=== PATIENT | male | born 1935 | race Caucasian/White ===

== ENCOUNTER 2017-11-06 17:45 | Inpatient (IN) ==
[2017-11-10] MEDS ORDERED: Ipratropium/Albuterol Neb 3 ML IH PRN (19:04)
[2017-11-10] MEDS: Apixaban 5 MG TABLET PO SCH (21:15)
[2017-11-10] MEDS: Budesonide Neb 0.25 MG/2 ML IH SCH (21:15)
[2017-11-11 05:23] LABS: Basophils % 0.1 %; Eosinophils # 0.3 K/mcL (0.0-0.6); Eosinophils % 2.5 %; Hematocrit 34.8 % (37.5-50.1); Hemoglobin 11.5 g/dL (12.9-16.9); Immature Granulocytes % 0.6 % (0-4); Lymphocytes % 8.2 %; Mean Corpuscular Hemoglobin 32.9 pg (28.0-33.3); Mean Corpuscular Volume 99.4 fL (83.0-100.0); Mean Platelet Volume 11.1 fL (9.4-12.4); Monocytes % 7.8 %; Neutrophils # 10.1 K/mcL (1.6-8.9); Platelet Count 101 K/mcL (140-400); Red Cell Distribution Width 12.8 % (11.5-14.5); Segmented Neutrophils % 80.8 %
[2017-11-11 05:27] LABS: INR 1.3; Prothrombin Time 13.6 Seconds (9.4-12.1)
[2017-11-11 05:38] LABS: Calcium 9.1 mg/dL (8.6-10.8); Potassium 3.8 mEq/L (3.5-4.5)
[2017-11-11] MEDS: Levothyroxine 25 MCG TABLET PO SCH (06:07)
[2017-11-11] MEDS: Cholecalciferol (D-3) 1,000 UNIT TABLET PO SCH (09:44)
[2017-11-11] MEDS: Apixaban 5 MG TABLET PO SCH ×2 (09:44→21:44)
[2017-11-11] MEDS: Cyanocobalamin (B-12) 1,000 MCG TABLET PO SCH (09:44)
[2017-11-11] MEDS: Furosemide 40 MG TABLET PO SCH (09:44)
[2017-11-11] MEDS: Diltiazem CD (24hr) 120 MG CAPSULE PO SCH (09:44)
[2017-11-11] MEDS: Budesonide Neb 0.25 MG/2 ML IH SCH ×2 (09:45→21:44)
--- NOTE | 2017-11-11 10:55 | Internal Med History&Physical ---
Date of Encounter: 11/11/17 Time of Encounter: 10:51 Assessment and Plan (1) COPD (chronic obstructive pulmonary disease) Current visit: Yes Status: Acute Patient was originally admitted for pneumonia and exacerbation of COPD and was successfully treated at [facility]. Patient currently here for PT/OT due to debilitation related to his hospital stay. Patient currently in good spirits and states that he is physically stronger daily. We will continue with current therapy and plan of care. Lungs currently are clear, but noted fine bibasilar rales. We will repeat chest x-ray to evaluate status of previous pleural effusions. No hypoxia or dyspnea noted. We will continue with current medications Qualifiers: COPD type: COPD with acute lower respiratory infection Qualified Code(s): J44.0 - Chronic obstructive pulmonary disease with acute lower respiratory infection (2) CAD (coronary artery disease) Current visit: Yes Status: Chronic Qualifiers: Coronary Disease-Associated Artery/Lesion type: [place] artery [place] vs. transplanted heart: [place] heart Associated angina: without angina Qualified Code(s): I25.10 - Atherosclerotic heart disease of [place] coronary artery without angina pectoris (3) HTN (hypertension) Current visit: Yes Status: Chronic Vital signs are stable. We will continue with current medications. Qualifiers: Hypertension type: essential hypertension Qualified Code(s): I10 - Essential (primary) hypertension (4) Atrial fibrillation Current visit: Yes Status: Chronic Heart rate has remained irregular, but rate is less than 100. Vital signs are stable. He denies palpitations. We will continue with current medications. Qualifiers: Atrial fibrillation type: chronic Qualified Code(s): I48.2 - Chronic atrial fibrillation (5) CHF (congestive heart failure) Current visit: Yes Status: Chronic No acute issues. Recent hospitalization showed BNP greater than 1500. We will continue with physical therapy. We will continue with current medications. Qualifiers: Congestive heart failure type: unspecified congestive heart failure type Congestive heart failure chronicity: acute on chronic Qualified Code(s): I50.9 - Heart failure, unspecified Internal Medicine - H&P: HPI Admitted From: Intrahospital Transfer Plans for Post Hospital Care: Home History of present illness: Mr. Swain is a 82 year old male admitted to this facility for physical therapy and rehabilitation due to debilitation secondary to pneumonia and advanced COPD. Patient states a long history of COPD, stating he uses oxygen continuously at home. Patient states he was in his usual state of health until up to about 2 weeks prior to admission, during which she began to have increasing episodes of shortness of breath. The patient then came to the ED and was diagnosed with pneumonia and pleural effusions. Patient was treated at an [facility] for pneumonia and states that he had a thoracentesis during this hospital stay. Patient also was treated for CHF during his hospital stay. Medical records show a BNP was obtained which was greater than 1500. Patient states that he feels that his health has been improving daily over the past week , states that he is still weaker than his baseline prior to admission. He currently denies any shortness of breath or chest discomforts. States he has minimal thick sputum, which appears brown in color. Denies any other discomforts. Past Med Surg Social Fam HX - Past Medical History Medical history: atrial fibrillation, COPD, hypertension, thyroid disease Psychiatric history: no psych history - Past Surgical History Surgical History: cholecystectomy, other (Thoracentesis) - Social History Smoking Status: Former smoker Smokeless Tobacco Status: No Alcohol use: none Drug use: none Occupational status: retired Current living situation: Home - Independent (Patient states he plans to discharge to his daughter's home until his health returns) Activity Level: Uses cane/walker Recent Out of Country Travel Within the Last 8 Weeks: No Exposure or Possible Exposure to Illness During Travel: No - Family History Mother History Unknown: Yes Father History Unknown: Yes Internal Medicine - H&P: Meds Albuterol Sulfate [Albuterol Inhaler] 2 puff IH Q4H PRN 11/10/17 [History] Apixaban [Eliquis] 2.5 mg PO BID 11/10/17 [History] Budesonide Neb [Pulmicort Neb] 0.25 mg IH BIDR 11/10/17 [History] Cholecalciferol (D-3) [Vitamin D] 2,000 unit PO DAILY 11/10/17 [History] Cyanocobalamin (B-12) [Vitamin B12] 1,000 mcg PO DAILY 11/10/17 [History] Ipratropium/Albuterol Neb [Duoneb] 3 ml IH Q4HR PRN 11/10/17 [History] Levothyroxine [Synthroid] 25 mcg PO 0630 11/10/17 [History] 3 Allergy/AdvReac Type Severity Reaction Status Date / Time No Known Allergies Allergy Verified 10/27/17 09:23 All Systems PM: A 10-system review of systems was performed and is negative for pertinent findings except as documented above in the HPI. - Constitutional Constitutional: as per HPI - EENT Eyes: no change in vision, no discharge, no pain, no photophobia Ears: no ear discharge, no ear pain, no tinnitus Nose, mouth and throat: no dysphagia, no nasal discharge, no neck pain, no sore throat - Cardiovascular Cardiovascular ROS IM: no chest pain, no diaphoresis, no dyspnea, no lightheadedness, no palpitations, no syncope - Respiratory Respiratory: as per HPI, cough, dyspnea, no wheezing, no excessive phlegm production - Gastrointestinal Gastrointestinal: no abdominal pain, no diarrhea, no hematemesis, no hematochezia, no melena, no nausea, no vomiting - Musculoskeletal Musculoskeletal ROS IM: no numbness, no tingling - Integumentary Integumentary IM: no rash, no unusual bruising - Neurological Neurological ROS: no confusion, no convulsions, no focal weakness, no numbness, no tingling, no tremor(s) - Constitutional Vitals: Temp Pulse Resp BP Pulse Ox 98.0 F 63 16 105/64 94 11/11/17 07:18 11/11/17 07:28 11/11/17 07:28 11/11/17 07:28 11/11/17 07:28 General appearance: Present: A&O X 3, pleasant - Head Head exam: Present: atraumatic, normocephalic - Eye Eye exam: Present: PERRL, conjuntiva pink, sclera anicteric Pupils: Present: PERRL - Neck Neck exam general surgery: Present: supple, trachea midline. Absent: lymphadenopathy - Respiratory Respiratory exam: Absent: accessory muscle use, rhonchi, wheezes Additional comments: Lungs are clear to the upper little, but noted fine posterior bibasilar rales. Respiratory effort appears relaxed while at rest. - Cardiovascular Cardiovascular exam: Present: irregular rhythm, RRR, +S1, +S2. Absent: diastolic murmur, gallop, rubs, systolic murmur - GI/Abdominal GI/Abdominal exam: Present: normal bowel sounds, soft, no peritoneal signs. Absent: distended, tenderness - Extremities Exam Extremities exam: Present: warm, radial pulses palpable and symmetrical. Absent : calf tenderness, cyanotic, pedal edema Internal Med - H&P Results - Labs CBC & Chem 7: 11/11/17 05:10 11/11/17 05:10 Labs: Short CBC 11/11/17 Range/Units 05:10 WBC 12.5 H (4.3-11.1) K/mcL Hgb 11.5 L (12.9-16.9) g/dL Hct 34.8 L (37.5-50.1) % Plt Count 101 L (140-400) K/mcL Neutrophils # 10.1 H (1.6-8.9) K/mcL BMP 11/11/17 05:10 Sodium 142 Potassium 3.8 Chloride 93 L Carbon Dioxide 40 H* BUN 37 H Creatinine 1.48 H Glucose 89 Calcium 9.1
[2017-11-12] MEDS: Levothyroxine 25 MCG TABLET PO SCH (04:57)
[2017-11-12 05:05] LABS: Hematocrit 35.3 % (37.5-50.1); Hemoglobin 11.6 g/dL (12.9-16.9); Mean Corpuscular HGB Conc 32.9 g/dL (31.6-35.5); Mean Corpuscular Hemoglobin 33.1 pg (28.0-33.3); Mean Corpuscular Volume 100.9 fL (83.0-100.0); Mean Platelet Volume 11.1 fL (9.4-12.4); Red Cell Distribution Width 12.6 % (11.5-14.5)
[2017-11-12 05:08] LABS: Platelet Count 92 K/mcL (140-400)
[2017-11-12 05:21] LABS: Albumin 2.9 g/dL (3.5-5.0); Bilirubin,Total 0.8 mg/dL (0.2-1.2); Calcium 8.8 mg/dL (8.6-10.8); Globulin 2.9 g/dL (2.4-3.5); Magnesium 1.8 mg/dL (1.6-2.6); Potassium 3.9 mEq/L (3.5-4.5); Total Protein 5.8 g/dL (6.0-8.3)
[2017-11-12] MEDS: Furosemide 40 MG TABLET PO SCH (08:32)
[2017-11-12] MEDS: Cyanocobalamin (B-12) 1,000 MCG TABLET PO SCH (08:32)
[2017-11-12] MEDS: Diltiazem CD (24hr) 120 MG CAPSULE PO SCH (08:32)
[2017-11-12] MEDS: Apixaban 5 MG TABLET PO SCH ×2 (08:32→21:03)
[2017-11-12] MEDS: Cholecalciferol (D-3) 1,000 UNIT TABLET PO SCH (08:32)
[2017-11-12] MEDS: Budesonide Neb 0.25 MG/2 ML IH SCH ×2 (08:35→21:04)
--- NOTE | 2017-11-12 11:31 | Internal Med Progress Note ---
Date of Encounter: 11/12/17 Time of Encounter: 11:29 - Assessment and plan (1) COPD (chronic obstructive pulmonary disease) Current Visit: Yes Status: Acute Assessment and plan: Patient has been improving. Denies any dyspnea or productive cough. No hypoxia. Patient observed ambulating with physical therapy, he states he did drop to the high 80s on oximetry while on 2 L. Physical therapy states once patient rested for a short period, his oxygenation quickly returned to greater than 90%. We will continue to titrate oxygen down to maintain saturation greater than 88%. We will continue with current medications. Chest x-ray reviewed which shows no acute infectious process, but continued bilateral pleural effusions. Radiology reviewed previous studies and shows pleural effusions have reduced in size. Patient with a history of thoracentesis during previous admission. Patient to continue with PT OT. Qualifiers: COPD type: COPD with acute lower respiratory infection Qualified Code(s): J44.0 - Chronic obstructive pulmonary disease with acute lower respiratory infection (2) CAD (coronary artery disease) Current Visit: Yes Status: Chronic Assessment and plan: No acute issues. Patient denies any chest discomforts or palpitations. We will continue with current medications Qualifiers: Coronary Disease-Associated Artery/Lesion type: [place] artery [place] vs. transplanted heart: [place] heart Associated angina: without angina Qualified Code(s): I25.10 - Atherosclerotic heart disease of [place] coronary artery without angina pectoris (3) HTN (hypertension) Current Visit: Yes Status: Chronic Assessment and plan: Vital signs stable. We will continue with current medications Qualifiers: Hypertension type: essential hypertension Qualified Code(s): I10 - Essential (primary) hypertension (4) Atrial fibrillation Current Visit: Yes Status: Chronic Assessment and plan: Patient continues with irregular heart rate, but his rate has been less than 100 Qualifiers: Atrial fibrillation type: chronic Qualified Code(s): I48.2 - Chronic atrial fibrillation (5) CHF (congestive heart failure) Current Visit: Yes Status: Chronic Assessment and plan: No acute issues. Patient denies any chest discomfort or palpitations. Chest x- ray was reviewed which shows no acute process. Qualifiers: Congestive heart failure type: unspecified congestive heart failure type Congestive heart failure chronicity: acute on chronic Qualified Code(s): I50.9 - Heart failure, unspecified - Subjective Interval history: Patient appears relaxed and denies any current shortness of breath or chest discomfort. He denies any productive cough. Afebrile. - Constitutional Vitals: Temp Pulse Resp BP Pulse Ox 98.0 F 62 18 110/56 94 11/12/17 08:00 11/12/17 08:00 11/12/17 08:00 11/12/17 08:00 11/12/17 08:00 General appearance: Present: A&O X 3, pleasant - Head Head exam: Present: atraumatic, normocephalic - Eye Eye exam: Present: PERRL, conjuntiva pink, sclera anicteric Pupils: Present: PERRL - Neck Neck exam general surgery: Present: supple, trachea midline. Absent: lymphadenopathy - Respiratory Respiratory exam: Present: CTAB. Absent: accessory muscle use, rales, rhonchi, wheezes - Cardiovascular Cardiovascular exam: Present: RRR, +S1, +S2. Absent: diastolic murmur, gallop, rubs, systolic murmur - GI/Abdominal GI/Abdominal exam: Present: normal bowel sounds, soft, no peritoneal signs. Absent: distended, tenderness - Extremities Exam Extremities exam: Present: warm, radial pulses palpable and symmetrical. Absent : calf tenderness, cyanotic, pedal edema - Neurological Exam Neurological exam: Present: CN II-XII intact, oriented X3, no focal deficits. Absent: pronater drift, facial droop, speech deficit - Skin Skin exam: Present: dry, intact Internal Medicine: Result - Labs CBC & Chem 7: 11/12/17 04:50 11/12/17 04:50 Labs: Short CBC 11/12/17 Range/Units 04:50 WBC 10.1 (4.3-11.1) K/mcL Hgb 11.6 L (12.9-16.9) g/dL Hct 35.3 L (37.5-50.1) % Plt Count 92 L (140-400) K/mcL BMP 11/12/17 04:50 Sodium 141 Potassium 3.9 Chloride 95 L Carbon Dioxide 34 H BUN 36 H Creatinine 1.54 H Glucose 106 H Calcium 8.8 Liver Function 11/12/17 Range/Units 04:50 Total Bilirubin 0.8 (0.2-1.2) mg/dL AST 25 (5-34) Units/L ALT 18 (0-55) Units/L Alkaline Phosphatase 58 (38-126) Units/L Albumin 2.9 L (3.5-5.0) g/dL - ABG Interpretation ABG results: PT/INR, D-dimer PT 13.6 Seconds (9.4-12.1) H 11/11/17 05:10 - Impressions Impressions Chest X-Ray 11/12/17 06:00 IMPRESSION: Persistent pleural-parenchymal disease at the lung bases, slightly decreased D/ / Michael Schwartz MD / Michael Schwartz MD Interpreting Provider: Michael Schwartz MD - Diagnostic Studies Chest x-ray Status: image reviewed by me Additional comments: Chest x-ray this morning was reviewed which shows continued bilateral peripheral effusions which have reduced in size from previous studies. No other infectious process noted Consult Discharge Plan - Plan Referrals: Lorenzo Kyle MD [Primary Care Provider] -
--- NOTE | 2017-11-12 15:30 | Discharge Summary ---
Date of Encounter: 11/12/17 Time of Encounter: 15:22 - Discharge Diagnosis (1) COPD (chronic obstructive pulmonary disease) Priority: Primary Status: Acute Comments: Patient continues to progress well. Continues to remain O2 dependent, but is easily maintain oximetry greater than 90% on 2 L. Patient noted to desaturate to 88% during brisk ambulation, but quickly returned greater than 90% after short rest. Denied any dyspnea, even after ambulation. Denies any productive cough. Afebrile. Patient had follow-up chest x-ray obtained which showed a reduction in bilateral pleural effusions and no acute infectious process. Qualifiers: COPD type: COPD with acute lower respiratory infection Qualified Code(s): J44.0 - Chronic obstructive pulmonary disease with acute lower respiratory infection (2) CAD (coronary artery disease) Priority: Secondary Status: Chronic Comments: No acute issues during this hospitalization. Patient continues with home monitor which was placed during previous admission at Hospital by cardiology. Patient has denied any chest discomfort or palpitations during his stay. Qualifiers: Coronary Disease-Associated Artery/Lesion type: [place] artery [place] vs. transplanted heart: [place] heart Associated angina: without angina Qualified Code(s): I25.10 - Atherosclerotic heart disease of [place] coronary artery without angina pectoris (3) HTN (hypertension) Priority: Secondary Status: Chronic Comments: Vital signs remained stable during this admission. Patient to continue on current home medications Qualifiers: Hypertension type: essential hypertension Qualified Code(s): I10 - Essential (primary) hypertension (4) Atrial fibrillation Priority: Secondary Status: Chronic Comments: No acute issues during this hospitalization. Patient continues without monitor for cardiovascular. Heart rate has remained less than 100 controlled rate Qualifiers: Atrial fibrillation type: chronic Qualified Code(s): I48.2 - Chronic atrial fibrillation (5) CHF (congestive heart failure) Priority: Secondary Status: Chronic Comments: No acute issues. Patient had a BMP greater than 1500 that was taken at previous hospitalization. Recent chest x-ray showed acute issues reported patient to continue with medications at home and follow-up with cardiovascular Qualifiers: Congestive heart failure type: unspecified congestive heart failure type Congestive heart failure chronicity: acute on chronic Qualified Code(s): I50.9 - Heart failure, unspecified - Discharge Medications Home Medications: Albuterol Sulfate [Albuterol Inhaler] 2 puff IH Q4H PRN 11/10/17 [History] Apixaban [Eliquis] 2.5 mg PO BID 11/10/17 [History] Budesonide Neb [Pulmicort Neb] 0.25 mg IH BIDR 11/10/17 [History] Cholecalciferol (D-3) [Vitamin D] 2,000 unit PO DAILY 11/10/17 [History] Cyanocobalamin (B-12) [Vitamin B12] 1,000 mcg PO DAILY 11/10/17 [History] Ipratropium/Albuterol Neb [Duoneb] 3 ml IH Q4HR PRN 11/10/17 [History] Levothyroxine [Synthroid] 25 mcg PO 0630 11/10/17 [History] Allergies/Adverse Reactions: 3 Allergy/AdvReac Type Severity Reaction Status Date / Time No Known Allergies Allergy Verified 10/27/17 09:23 Date of admission: 11/10/17 18:21 Primary care physician: Lorenzo Kyle MD Consults: 11/10/17 18:49 Consult to Occupational Therapy [CONS] Routine Comment: Evaluate, develop and implement POC Reason for Consult: deconditioning s/p afib rvr. Consult to Physical Medicine/Rehab [CONS] Routine Reason for Consult: deconditioning s/p afib rvr. Call Completed: No Consult to Physical Therapy [CONS] Routine Comment: Evaluate, develop and implement POC Reason for Consult: deconditioning s/p afib rvr. Consult to Recreational Therapy [CONS] Routine Comment: Evaluate, develop and implement POC Consult to Waiter/Waitress Dining Car [CONS] Routine Reason for SW Consult: deconditioning s/p afib rvr. potential for f/u care Discharging clinician: Godwin Mckenzie Anticipated date of discharge: 11/13/17 - Patient Status Disposition: Home, Self-Care Condition: Fair Functional capacity at discharge: independent ambulation Overall status at discharge: patient is progressing back to baseline - Discharge Instructions Follow Up With: Lorenzo Kyle MD [Primary Care Provider] - - Diet and Activity Activity: as per physical therapy, increase activity as tolerated, wear oxygen at all times Diet: advance to your usual diet, low salt diet Interval History: lesvia Swain is a 82 year old male admitted to this facility for physical therapy and rehabilitation due to debilitation secondary to pneumonia and advanced COPD. Patient states a long history of COPD, stating he uses oxygen continuously at home. While in the ED at an area hospital, he was diagnosed with pneumonia and pleural effusions. Patient was treated at an area hospital for pneumonia and states that he had a thoracentesis and also was treated for CHF during his hospital stay. Medical records show a BNP was obtained which was greater than 1500. Patient participated in PT/OT during his stay at this facility and progressed well with his rehabilitation. Patient observed ambulating with oxygen and showed steady gait with no signs of dyspnea.. He currently denies any shortness of breath or chest discomforts. Patient continues to wear [place] tomorrow which is displaced by cardiovascular previous hospitalization. Patient states that he has an appointment to follow-up with cardiovascular. Hospital course: Mr. Swain is a 82 year old male Time spent discussing smoking cessation with patient: 3 to 10 minutes - Time Spent with Patient Total time spent providing and/or coordinating discharge services: Less than 30 minutes - Constitutional Vitals: Temp Pulse Resp BP Pulse Ox 98.0 F 62 18 110/56 94 11/12/17 08:00 11/12/17 08:00 11/12/17 08:00 11/12/17 08:00 11/12/17 08:00 General appearance: Present: A&O X 3, pleasant - Head Head exam: Present: atraumatic, normocephalic - Eye Eye exam: Present: PERRL, conjuntiva pink, sclera anicteric Pupils: Present: PERRL - Neck Neck exam general surgery: Present: supple, trachea midline. Absent: lymphadenopathy - Respiratory Respiratory exam: Absent: accessory muscle use, rales, rhonchi, wheezes Additional comments: Lungs are clear throughout upper little, but noted diminished bases. - Cardiovascular Cardiovascular exam: Present: irregular rhythm, RRR, +S1, +S2. Absent: diastolic murmur, gallop, rubs, systolic murmur - GI/Abdominal GI/Abdominal exam: Present: normal bowel sounds, soft, no peritoneal signs. Absent: distended, tenderness - Extremities Exam Extremities exam: Present: warm, radial pulses palpable and symmetrical. Absent : calf tenderness, cyanotic, pedal edema - Neurological Exam Neurological exam: Present: CN II-XII intact, oriented X3, no focal deficits. Absent: pronater drift, facial droop, speech deficit - Skin Skin exam: Present: dry, intact
[2017-11-13] MEDS: Levothyroxine 25 MCG TABLET PO SCH (05:47)
[2017-11-13] MEDS: Cholecalciferol (D-3) 1,000 UNIT TABLET PO SCH (08:10)
[2017-11-13] MEDS: Cyanocobalamin (B-12) 1,000 MCG TABLET PO SCH (08:10)
[2017-11-13] MEDS: Apixaban 5 MG TABLET PO SCH (08:10)
[2017-11-13] MEDS: Diltiazem CD (24hr) 120 MG CAPSULE PO SCH (08:10)
[2017-11-13] MEDS: Furosemide 40 MG TABLET PO SCH (08:10)
[2017-11-13] MEDS: Budesonide Neb 0.25 MG/2 ML IH SCH (08:11)
[2017-11-13 08:16] VITALS: BP 110/69
--- NOTE | 2017-11-13 12:17 | Physician Discharge Referral ---
Home Health/Hosp Referral Info Transfer to: Home Health - Diagnosis (1) Atrial fibrillation Status: Acute (2) Physical deconditioning Status: Acute (3) CAD (coronary artery disease) Status: Chronic (4) CHF (congestive heart failure) Status: Chronic - Respiratory Orders Oxygen / L per min (2) Smoking Cessation: Smoking cessation has been advised. For more information, call the [place] Tobacco Quit Line at 4-796-MKLO-NOW. - Diet/Nutrition Diet/Nutrition Orders: Regular, Cardiac - Activity Activity Orders: Ambulate, Walker - Services Needed Following services are medically necessary services: Physical Therapy, Occupational Therapy - Transfer Medications Prescriptions: Diltiazem CD (24hr) [Cardizem CD] 120 mg PO DAILY #30 cap.er.24h Lidocaine Patch [Lidoderm 5% patch] 1 each TP DAILY #14 adh..patch Home Medications: Albuterol Sulfate [Albuterol Inhaler] 2 puff IH Q4H PRN 11/10/17 [History] Apixaban [Eliquis] 2.5 mg PO BID 11/10/17 [History] Budesonide Neb [Pulmicort Neb] 0.25 mg IH BIDR 11/10/17 [History] Cholecalciferol (D-3) [Vitamin D] 2,000 unit PO DAILY 11/10/17 [History] Cyanocobalamin (B-12) [Vitamin B12] 1,000 mcg PO DAILY 11/10/17 [History] Ipratropium/Albuterol Neb [Duoneb] 3 ml IH Q4HR PRN 11/10/17 [History] Levothyroxine [Synthroid] 25 mcg PO 0630 11/10/17 [History] Diltiazem CD (24hr) [Cardizem CD] 120 mg PO DAILY #30 cap.er.24h 11/13/17 [Rx] Flecainide 100 mg PO Q12HR tablet 11/13/17 [Rx] Furosemide [Lasix] 40 mg PO DAILY tablet 11/13/17 [Rx] Lidocaine Patch [Lidoderm 5% patch] 1 each TP DAILY #14 adh..patch 11/13/17 [Rx] Potassium Chloride 10 meq PO DAILY tab.er.prt 11/13/17 [Rx] Allergies/Adverse Reactions: 3 Allergy/AdvReac Type Severity Reaction Status Date / Time No Known Allergies Allergy Verified 10/27/17 09:23 Certification: Further, I certify that my clinical findings support that this patient is homebound (i.e. absences from home require considerable and taxing effort and are for medical reasons or jainism services or infrequently or short duration when for other reasons) because: Homebound Reason: Patient requires assistance of a person or device to safely leave home (Due to deconditioning, fall risk, etc.) Attestation: My signature below is to certify that this patient is under my care and that I, or nurse practitioner, or a physician's engineering assistant working with me, has a face-to -face encounter with this patient.
== END 2017-11-13 13:30 | disposition home health service (06) | DRG 946 ==
LOC: INPGRE 11-10 18:21
PROVIDERS: ADMIT Internal Medicine; ATTEND Internal Medicine